=== PATIENT | female | born 1940 | race Caucasian/White ===

== ENCOUNTER 2019-10-05 21:43 | Inpatient (IN) | payer OTHER ==
[~2019-10-05] VITALS: Ht 160 cm; Wt 74.0 kg
[2019-10-05 22:33] VITALS: Ht 160 cm; Wt 74.0 kg
[2019-10-06] MEDS ORDERED: APAP325 MG (01:17)
[2019-10-06] MEDS ORDERED: ATORVASTATIN CA40 M1 PO (01:18)
[2019-10-06] MEDS ORDERED: TENORMIN25 MG PO (01:18)
[2019-10-06] MEDS ORDERED: VOLTAREN100 GM TOP (01:18)
[2019-10-06] MEDS ORDERED: FEOSOL65 M1 PO (01:19)
[2019-10-06] MEDS ORDERED: BACLOFEN5 MG PO (01:19)
[2019-10-06] MEDS ORDERED: GLIMEPIRIDE4 M1 PO (01:20)
[2019-10-06] MEDS ORDERED: OMEPRAZOLE MAGN20 M1 PO (01:21)
[2019-10-06] MEDS ORDERED: FORTAMET500 M1 PO (01:21)
[2019-10-06] MEDS ORDERED: DITROPAN XL10 MG PO (01:22)
[2019-10-06] MEDS ORDERED: NIT0.4 SL (01:23)
[2019-10-06 01:45] LABS: PLATELET COUNT 190 x10^3mcL (130-400); RED CELL DISTRIBUTION WIDTH 14.4 % (11.5-14.5)
[2019-10-06 01:49] LABS: BASOPHIL % 3.3 % (0-2)
[2019-10-06 02:11] LABS: CALCIUM 8.2 mg/dL (8.5-10.1); CARBON DIOXIDE 30.3 mmol/L (21-32); CHLORIDE SERUM 107 mmol/L (98-107); CREATININE SERUM 0.7 mg/dL (0.6-1.0); GLUCOSE SERUM 110 mg/dL (74-106); POTASSIUM SERUM 4.1 mmol/L (3.5-5.1); SODIUM SERUM 142 mmol/L (136-145)
[2019-10-06 02:55] VITALS: BP 139/61
[2019-10-06 02:55] LABS: T3 TOTAL 1.05 ng/mL
[2019-10-06 03:14] LABS: CHOLESTEROL/HDL RATIO 2.8
[2019-10-06 03:15] LABS: FREE T4 1.1 ng/dL (0.76-1.46); FREE THYROXINE INDEX 3.3 ug/dL (1.4-4.5); T4(THYROXINE) 9.7 ug/dL (4.7-13.3)
[2019-10-06 04:30] VITALS: BP 139/55
[2019-10-06 04:36] LABS: microscopic required? YES; urine erythrocyte 2+ (NEGATIVE)
[2019-10-06 07:36] LABS: BASOPHIL % 0.3 % (0-2); PLATELET COUNT 191 x10^3mcL (130-400); RED CELL DISTRIBUTION WIDTH 14.9 % (11.5-14.5)
[2019-10-06 08:23] LABS: SODIUM SERUM 141 mmol/L (136-145)
[2019-10-06 08:24] LABS: CALCIUM 8.7 mg/dL (8.5-10.1); CARBON DIOXIDE 30.1 mmol/L (21-32); CHLORIDE SERUM 105 mmol/L (98-107); CREATININE SERUM 0.6 mg/dL (0.6-1.0); GLUCOSE SERUM 109 mg/dL (74-106); MAGNESIUM 2.1 mg/dL (1.8-2.4); PHOSPHOROUS 3.8 mg/dL (2.5-4.9); POTASSIUM SERUM 4.5 mmol/L (3.5-5.1)
[2019-10-06 08:36] VITALS: BP 155/63
[2019-10-06 12:12] VITALS: BP 149/59
[2019-10-06 16:37] VITALS: BP 141/54
[2019-10-06 21:18] VITALS: BP 120/49
[2019-10-07 06:02] VITALS: BP 103/67
[2019-10-07 06:36] LABS: BASOPHIL % 0.2 % (0-2); CALCIUM 9.6 mg/dL (8.5-10.1); CARBON DIOXIDE 29.3 mmol/L (21-32); CHLORIDE SERUM 106 mmol/L (98-107); CREATININE SERUM 0.7 mg/dL (0.6-1.0); GLUCOSE SERUM 106 mg/dL (74-106); MAGNESIUM 2.4 mg/dL (1.8-2.4); PHOSPHOROUS 3.8 mg/dL (2.5-4.9); PLATELET COUNT 198 x10^3mcL (130-400); POTASSIUM SERUM 4.3 mmol/L (3.5-5.1); SODIUM SERUM 141 mmol/L (136-145)
[2019-10-07 06:56] LABS: RED CELL DISTRIBUTION WIDTH 15.3 % (11.5-14.5)
[2019-10-07 08:40] VITALS: BP 143/56
[2019-10-07] MEDS ORDERED: VOLTAREN100 GM TOP (11:38)
[2019-10-07] MEDS ORDERED: NAPROSYN500 MG PO (11:39)
[2019-10-07] MEDS ORDERED: SYN25 PO (11:44)
[2019-10-07 12:28] VITALS: BP 133/52
[2019-10-07 13:49] VITALS: BP 133/52
== END 2019-10-07 16:28 | disposition home or self-care (01) | DRG 551 ==
LOC: ED 21:43 → MU 10-06 01:41
PROVIDERS: Emergency Medicine; ADMIT Student in an Organized Health Care Education/Training Program
DX: M47.896 Other spondylosis, lumbar region (principal); N17.0 Acute kidney failure with tubular necrosis; S39.92XA Unspecified injury of lower back, initial encounter; E11.9 Type 2 diabetes mellitus without complications; W18.39XA Other fall on same level, initial encounter; E03.9 Hypothyroidism, unspecified; N39.41 Urge incontinence; E78.5 Hyperlipidemia, unspecified; I10 Essential (primary) hypertension; D50.9 Iron deficiency anemia, unspecified; Y93.89 Activity, other specified; Y92.018 Other place in single-family (private) house as the place of occurrence of the external cause; Z96.653 Presence of artificial knee joint, bilateral; Z79.84 Long term (current) use of oral hypoglycemic drugs
CPT/HCPCS: 82962; 84439; 97110-GP; 97116-GP; G0378; J1100; J3010